=== PATIENT | male | born 1955 | race Caucasian/White ===

== ENCOUNTER → 2016-09-18 11:57 | Outpatient (CLI) | payer MEDICARE ==
[2014-06-21 13:07] VITALS: BMI 28.7
[~2016-09-18 11:57] MED LIST: ADVIL PM CAPLET1 TAB PO; ASPIRIN325 MG PO; ASPIRIN81 MG PO; COLACE100 MG PO; HEMOCYTE PLUS C1 CAP PO; HUMALOG PUMP; IMDUR30 MG PO; LASIX20 MG PO; LEXAPRO20 MG PO; LYRICA75 MG PO; MEVACOR40 MG PO; NEXIUM20 MG PO; PLAVIX75 MG PO; PRILOSEC20 MG PO; PRINIVIL10 MG PO; PRINIVIL20 MG PO; SENOKOT-S TABLE1 TAB PO; ZOVIRAX400 MG PO
== END | disposition home or self-care (01) ==
LOC: D.MRI 11:57
DX: G32.81 Cerebellar ataxia in diseases classified elsewhere (principal)

== ENCOUNTER → 2016-11-04 13:12 | Outpatient (CLI) | payer MEDICARE ==
[2014-06-21 13:07] VITALS: BMI 28.7
== END | disposition home or self-care (01) ==
LOC: D.US 13:12
DX: I25.10 Atherosclerotic heart disease of native coronary artery without angina pectoris (principal); M79.605 Pain in left leg; M79.604 Pain in right leg

== ENCOUNTER 2016-11-19 06:33 | Outpatient (CLI) | payer MEDICARE ==
[~2016-11-19] VITALS: Ht 177.8 cm; Wt 90.9 kg
--- NOTE | ~2016-11-19 | HEMODYNAMI ---
PATIENT:SARAH MARTINEZ MEDICAL RECORD: [id number] : 51 LOCATION:[facility] ADMISSION DATE: 11/19/16 Generatedon:11/19/20169:29 Patient name: SARAH MARTINEZ Patient #: [id number] SSN: DO B: 1955 Date of study: 11/19/2016 Page: Of Hemodynamic Procedure Report Patient Data Patient Demographics Procedure consent was obtained First Name: SARAH Gender: Male Last Name: JUAN : 1955 [facility] Initial: C Age: 61 year(s) Patient #: [id number] Race: Unknown Additional ID: [id number] Contact details Address: [address] [place] [address] State: [place] City: [facility] Zip code: [address] Past Medical History Allergies Allergen Reaction Date Comments Reported Morphine 11/19/2016 Admission Admission Data Admission Date: 11/19/2016 Admission Time: 6:33 Lab Results Lab Result Date: 11/19/2016 Lab Result Time: 0:00 Biochemistry Name Units Result Min Max BUN mg/dl 15 --(--*-)-- 7 18 Creatinine mg/dl 0.9 --(-*--)-- 0.6 1.3 CBC Name Units Result Min Max Hemoglobin g/dl 14 --(*---)-- 13.5 17.5 Procedure Procedure Types Cath Procedure Miscellaneous Procedures Moderate Sedation up to 45 minutes Peripheral Cath Diagnostic Procedure Cath Peripheral Pvcww-Yaguodc-Gfj-Off Peripheral vascular Intervention Atherectomy Stent Stent-Fem/Pop w/ather w/plasty Procedure Description Procedure Date Procedure Date: 11/19/2016 Procedure Start Time: 8:14 Procedure End Time: 9:28 Procedure Staff Name Function Nicho Aguirre MD Performing Physician Nikolas Pimentel RN Nurse Raudel Lopez RT Scrub Jose Burton RT Monitor Procedure Data Cath Procedure Fluoroscopy Diagnostic fluoroscopy Total fluoroscopy Time: time: 15.6 min 15.6 min Diagnostic fluoroscopy Total fluoroscopy dose: 406 dose: 406 mGy mGy Contrast Material Contrast Material Type Amount (ml) Isovue 300 191 Entry Location Entry Primary Successful Side Size Upsize Upsize Entry Closure Succes sful Closure Location (Fr) 1 (Fr) 2 (Fr) Remarks Device Remarks Femoral Right 5 Fr 6 Fr 6 Fr PINNACLE Exoseal artery Long Short 6FR SHORT USED TO OPEN THE SKIN Diagnostic catheters Device Type Used For End Catheter Placement Cordis Tempo 5Fr UF Abdominal catheter aortogram with runoff Diagnostic Infinity 5Fr Abdominal IM catheter aortogram with runoff Procedure Complications No complications Procedure Medications Medication Administration Route Dosage Oxygen NC 2 l/min Heparin Flush Bag added to field 2 bags (1000units/500ml NS) 0.9% NaCl I.V. 100 ml/hr Fentanyl I.V. 50 mcg Versed I.V. 1 mg Fentanyl I.V. 50 mcg Versed I.V. 1 mg Fentanyl I.V. 50 mcg Viperslide Mix(5mg added to field Verapamil/5mg Nitro/20cc Viperslide/100cc Bag NS) Heparin Bolus I.V. 8000 units Fentanyl I.V. 50 mcg Plavix P.O. 600 mg Hemodynamics Rest HGB: 14 (g/dl) Heart Rate: 70 (bpm) Snapshots Pre Cath Intra NCS Post Cath Vital Signs Time Heart Resp SPO2 etCO2 VO3dwna NIBP (mmHg) Rhythm Pain Sedation Rate (ipm) (%) (mmHg) (mmHg) Status Level (bpm) 7:57:33 70 18 98 0 0 174/96(148) NSR 0 (11) 10(A) , No pain 8:01:57 69 20 98 0 0 182/89(146) NSR 0 (11) 10(A) , No pain 8:06:23 68 18 97 0 0 167/84(146) NSR 0 (11) 10(A) , No pain 8:10:43 68 17 95 0 0 166/92(132) NSR 0 (11) 10(A) , No pain 8:15:05 65 19 99 0 0 167/84(132) NSR 0 (11) 9(A) , No pain 8:19:34 66 18 100 0 0 164/72(141) NSR 0 (11) 9(A) , No pain 8:23:56 67 18 100 0 0 173/88(132) NSR 0 (11) 9(A) , No pain 8:28:12 66 19 100 0 0 166/89(131) NSR 0 (11) 9(A) , No pain 8:32:32 66 17 100 0 0 178/89(142) NSR 0 (11) 9(A) , No pain 8:36:56 68 17 100 0 0 176/89(129) NSR 0 (11) 9(A) , No pain 8:41:18 68 16 100 0 0 148/81(140) NSR 0 (11) 9(A) , No pain 8:45:36 69 16 100 0 0 133/77(107) NSR 0 (11) 9(A) , No pain 8:49:48 70 16 100 0 0 143/76(107) NSR 0 (11) 9(A) , No pain 8:54:08 67 17 99 0 0 112/67(94) NSR 0 (11) 9(A) , No pain 8:58:12 68 17 99 0 0 130/78(110) NSR 0 (11) 9(A) , No pain 9:02:20 67 18 100 0 0 149/91(139) NSR 0 (11) 9(A) , No pain 9:06:34 67 17 100 0 0 149/88(138) NSR 0 (11) 9(A) , No pain 9:10:48 67 18 100 0 0 163/91(132) NSR 0 (11) 9(A) , No pain 9:15:08 67 18 100 0 0 167/92(148) NSR 0 (11) 9(A) , No pain 9:19:28 68 18 100 0 0 173/92(146) NSR 0 (11) 9(A) , No pain 9:23:52 67 19 100 0 0 164/93(147) NSR 0 (11) 9(A) , No pain 9:28:12 66 11 100 0 0 167/87(152) NSR 0 (11) 9(A) , No pain Medications Time Medication Route Dose Verified Delivered Reason Notes Effectiveness by by 8:00:15 Oxygen NC 2 Nikolas Connor Per physician l/min Margarito Pimentel RN RN 8:00:25 Heparin Flush added 2 Nikolas Connor used for Bag to bags Pimentel Pimentel bag shaker (1000units/500ml field RN NS) 8:00:34 0.9% NaCl I.V. 100 Nikolas Nikolas Per physician ml/hr Margarito Pimentel RN RN 8:10:57 Fentanyl I.V. 50 Nikolas Nikolas for sedation mcg Margarito Pimentel RN RN 8:11:15 Versed I.V. 1 mg Nikolas Nikolas for sedation Margarito Pimentel RN RN 8:17:13 Fentanyl I.V. 50 Nikolas Nikolas for sedation mcg Margarito Pimentel RN RN 8:17:18 Versed I.V. 1 mg Nikolas Nikolas for sedation Margarito Pimentel RN RN 8:37:29 Fentanyl I.V. 50 Nikolas Nikolas for sedation mcg Margarito Pimentel RN RN 8:37:39 Viperslide added Nikolas Nikolas used for Mix(5mg to Margarito Pimentel RN procedure Verapamil/5mg RN Nitro/20cc Viperslide/100cc Bag NS) 8:38:34 Heparin Bolus I.V. 8000 Nikolas Nikolas for units Margarito Pimentel RN anticoagulation RN 8:48:48 Fentanyl I.V. 50 Nikolas Nikolas for sedation mcg Margarito Pimentel RN RN 9:26:12 Plavix P.O. 600 Nikolas Nikolas for mg Margarito Pimentel RN antiplatelet RN therapy Procedure Log Time Note 7:39:18 Nikolas Pimentel RN sent for patient. Start room use. 7:39:19 Time tracking: Regular hours 7:39:24 Plan of Care:Hemodynamics will remain stable., Cardiac rhythm will remain stable., Comfort level will be maintained., Respiratory function will remain adequate., Patient/ family verbilizes understanding of procedure., Procedure tolerated without complication., Recovers from procedure without complications.. 7:51:04 Patient received from Pre/Post Procedure Room to CCL 1 Alert and oriented. Tansferred to table in Supine position. 7:51:06 Warm blankets applied, and veronica hugger turned on for patient comfort. 7:51:06 Correct patient and procedure confirmed by team. 7:51:07 Signed procedure consent form obtained from patient. 7:51:08 ECG and BP/O2 sat monitors applied to patient. 7:56:28 Vital chart was started 8:00:15 Oxygen 2 l/min NC was administered by Nikolas Pimentel RN; Per physician; 8:00:25 Heparin Flush Bag (1000units/500ml NS) 2 bags added to field was administered by Nikolas Pimentel RN; used for procedure; 8:00:34 0.9% NaCl 100 ml/hr I.V. was administered by Nikolas Pimentel RN; Per physician; 8:02:30 Baseline sample Acquired. 8:02:44 Rhythm: sinus rhythm 8:02:47 Full Disclosure recording started 8:03:10 H&P Date Dictated: 10/30/2016 Within 30 days and on chart., H&P Addendum completed by physician on day of procedure. (MUST COMPLETE FOR ALL OUTPATIENTS). 8:03:12 Pre-procedure instructions explained to patient. 8:03:13 Pre-op teaching completed and patient verbalized understanding. 8:03:19 Family in waiting room. 8:03:22 Patient NPO since Midnight. 8:03:30 Patient allergic to Morphine 8:03:34 Is the patient allergic to Iodine/contrast media? No. 8:03:50 Is patient on blood thinner?No 8:03:54 Patient diabetic? Yes. 8:03:57 If diabetic: On Metformin? No 8:04:09 INSULIN DEPENDANT 8:04:16 ----Pre-sedation anethsthesia assessment.---- 8:04:19 Previous problem with sedation/anesthesia? No ? 8:04:21 Snore? Yes 8:04:33 Sleep apnea? No 8:04:36 Deviated septum? No 8:04:37 Opens mouth fully? Yes 8:04:39 Sticks out tongue? Yes 8:04:43 Airway obstruction? No ? 8:04:46 Dentures? No ? 8:06:01 Pre procedure: right dorsailis pedis pulse 1+ Palpable, but thready & weak; easily obliterated 8:06:06 Pre procedure: left dorsailis pedis pulse 1+ Palpable, but thready & weak; easily obliterated 8:06:10 Patient pain scale 0/10 ?. 8:06:21 IV patent on arrival in left forearm with 0.9% NaCl at [facility]. 8:07:37 Lab Result : BUN 15 mg/dl 8:07:37 Lab Result : Creatinine 0.9 mg/dl 8:07:37 Lab Result : Hemoglobin 14 g/dl 8:07:40 Lab results completed and on chart. 8:07:45 Right groin area was prepped with chlora-prep and draped in sterile fashion 8:07:49 Left groin area was prepped with chlora-prep and draped in sterile fashion 8:07:50 Alarms reviewed by R. N. 8:07:50 Sharps counted by scrub and verified by R.N. 8:07:51 --------ALL STOP TIME OUT------ 8:07:52 Final Timeout: patient, procedure, and site verified with staff and physician. All members of the team are in agreement. 8:07:58 Bilateral groins site verified by team. 8:08:01 Physical assessment completed. ASA score P 2 - A patient with mild systemic disease as per Nicho Aguirre MD. 8:08:08 Sedation plan: IV Moderate Sedation Versed, Fentanyl 8:08:20 Use device set Femoral Dx 8:08:22 Acist Syringe opened to sterile field. 8:08:23 Bag Decanter opened to sterile field. 8:08:23 Medline Cath Pack opened to sterile field. 8:08:23 Terumo 5Fr [place] Sheath opened to sterile field. 8:08:24 St Art 260cm J .035 wire opened to sterile field. 8:08:25 Acist Hand Control opened to sterile field. 8:08:26 Acist Manifold opened to sterile field. 8:08:27 Tegaderm 4 x 4 opened to sterile field. 8:10:57 Fentanyl 50 mcg I.V. was administered by Nikolas Pimentel RN; for sedation; 8:11:15 Versed 1 mg I.V. was administered by Nikolas Pimentel RN; for sedation; 8:13:48 Zero performed for pressure channel P1 8:13:59 Procedure started. 8:14:07 Local anesthetic to right femoral artery with Lidocaine 2% by Nicho Aguirre MD.INITIAL ACCESS ONLY 8:14:42 A 5 Fr sheath was inserted into the Right Femoral arteryPINNACLE 6FR SHORT USED TO OPEN THE SKIN 8:16:08 A Cordis Tempo 5Fr UF catheter was advanced over the wire and used for Abdominal aortogram with runoff. 8:16:26 Abdominal angiogram w/ runoff was performed. 8:17:13 Fentanyl 50 mcg I.V. was administered by Nikolas Pimentel RN; for sedation; 8:17:18 Versed 1 mg I.V. was administered by Nikolas Pimentel RN; for sedation; 8:20:19 Left leg runoff performed. 8:20:20 Right leg runoff performed. 8:20:39 Catheter removed. 8:21:15 A Diagnostic Infinity 5Fr IM catheter was advanced over the wire and used for Abdominal aortogram with runoff. 8::50 SELECTING LFA 8::57 Left leg runoff performed. 8:24:51 Catheter removed. 8:24:57 Merit BasixCompak Inflation Kit opened to sterile field. 8:25:17 Terumo 6Fr [place] Destination Sheath opened to sterile field. 8:25:25 Sheath upsized to a 6 Fr Long. 8:26:38 Terumo 6Fr [place] Sheath opened to sterile field. 8:28:43 Procedure type changed to Cath procedure, Miscellaneous Procedures, Moderate Sedation up to 45 minutes, Peripheral Cath Diagnostic Procedure, Cath Peripheral, Tceps-Etdtypy-Dej-Off, Peripheral vascular Intervention, Atherectomy, Stent, Stent-Fem/Pop w/ather w/plasty 8:36:26 Viperslide LUBRICANT opened to sterile field. 8:36:26 VIPER .014 335 CM guide wire opened to sterile field. 8:37:07 Predator 2.0 SFA catheter opened to sterile field. 8:37:29 Fentanyl 50 mcg I.V. was administered by Nikolas Pimentel RN; for sedation; 8:37:39 Viperslide Mix(5mg Verapamil/5mg Nitro/20cc Viperslide/100cc Bag NS) added to field was administered by Nikolas Pimentel RN; used for procedure; 8:37:51 VIPER wire advanced. 8:38:34 Heparin Bolus 8000 units I.V. was administered by Nikolas Pimentel RN; for anticoagulation; 8:44:44 A Diamondback Coronary atherectomy catheter was prepped and advanced across the Mid Superficial Femoral, Left lesion. Pass Number: 1 8:46:00 A Diamondback Coronary atherectomy catheter was prepped and advanced across the Mid Superficial Femoral, Left lesion. Pass Number: 2 8:47:14 A Diamondback Coronary atherectomy catheter was prepped and advanced across the Mid Superficial Femoral, Left lesion. Pass Number: 3 8:48:28 A Diamondback Coronary atherectomy catheter was prepped and advanced across the Mid Superficial Femoral, Left lesion. Pass Number: 4 8:48:48 Fentanyl 50 mcg I.V. was administered by Nikolas Pimentel RN; for sedation; 8:51:18 A Diamondback Coronary atherectomy catheter was prepped and advanced across the Distal Superficial Femoral, Left lesion. Pass Number: 1 8:51:59 A Diamondback Coronary atherectomy catheter was prepped and advanced across the Distal Superficial Femoral, Left lesion. Pass Number: 2 8:52:27 A Diamondback Coronary atherectomy catheter was prepped and advanced across the Distal Superficial Femoral, Left lesion. Pass Number: 3 8:53:23 A Diamondback Coronary atherectomy catheter was prepped and advanced across the Distal Superficial Femoral, Left lesion. Pass Number: 4 8:55:13 A Diamondback Coronary atherectomy catheter was prepped and advanced across the Distal Superficial Femoral, Left lesion. Pass Number: 5 8:55:47 Guide catheter removed. 9:03:01 Inflation number: 1 A Saber 6.0 x 6 x 150 balloon was prepped and advanced across the Distal Superficial Femoral, Left, then inflated to 3 DAVID for 1:45 (min:sec). 9:04:46 Inflation number: 2 The Saber 6.0 x 6 x 150 balloon was reinflated across the Distal Superficial Femoral, Left, to 3 DAVID for 1:30 (min:sec). 9:07:03 Inflation number: 1 The Saber 6.0 x 6 x 150 balloon was reinflated across the Mid Superficial Femoral, Left, to 5 DAVID for 1:09 (min:sec). 9:08:35 Inflation number: 2 The Saber 6.0 x 6 x 150 balloon was reinflated across the Mid Superficial Femoral, Left, to 6 DAVID for 1:08 (min:sec). 9:08:55 Balloon removed over the wire. 9:16:39 Cordis SMART 6 X 20 X 120 stent was deployed across Distal Superficial Femoral, Left . 9:18:51 Stent catheter was removed intact over wire. 9:18:52 Wire removed. 9:19:01 Sheath upsized to a 6 Fr Short. 9:19:01 Sheath removed intact; hemostasis achieved with Exoseal to the Right Femoral artery. 9:19:06 Procedure ended.(Physican Out) 9:19:10 Contrast amount:Isovue 300 191ml. 9:19:17 Fluoroscopy time 15.60 minutes. 9:19:21 Fluoroscopy dose: 406 mGy 9:19: Flurop Dose total: 406 9:19:52 Sharps counted by scrub and verified by R.N. 9:19:53 Insertion/operative site no bleeding no hematoma. 9:19:56 Post-op/insertion site Right Femoral artery dressed using a 4 x 4 and Tegaderm. 9:19:59 Post right femoral artery:stable 9:20:00 Post Procedure Pulses reassessed and unchanged 9:20:03 Post procedure: right dorsailis pedis pulse 1+ Palpable, but thready & weak; easily obliterated. 9:20:08 Post procedure rhythm: sinus rhythm 9:20:09 Post procedure instruction explained to patient.Patient verbalizes understanding. 9:22:07 Procedure and supply charges have been captured, reviewed, submitted and are correct. 9:24:21 Cordis 6Fr Exoseal opened to sterile field. 9:26:12 Plavix 600 mg P.O. was administered by Nikolas Pimentel RN; for antiplatelet therapy; 9:26:18 Procedure Complication : No complications 9:28:22 Vital chart was stopped 9:28:22 See physician's report for complete and final results. 9:28:24 Report given to Pre/Post Procedure Room. 9:28:28 Patient transfered to Pre/Post Procedure Room with Stretcher. 9:28:30 Procedure ended. 9:28:30 Full Disclosure recording stopped 9:28:34 End room use (Document Last) Intervention Summary Intervention Notes Time ActionType Lesion and Equipment Action# Pressure Duration Attributes Used 8:44:44 Atherectomy Mid Diamondback 00:23 Superficial Coronary Femoral, atherectomy Left catheter 8:46:00 Atherectomy Mid Diamondback 00:24 Superficial Coronary Femoral, atherectomy Left catheter 8:47:14 Atherectomy Mid Diamondback 00:29 Superficial Coronary Femoral, atherectomy Left catheter 8:48:28 Atherectomy Mid Diamondback 00:27 Superficial Coronary Femoral, atherectomy Left catheter 8:51:18 Atherectomy Distal Diamondback 00:15 Superficial Coronary Femoral, atherectomy Left catheter 8:51:59 Atherectomy Distal Diamondback 00:27 Superficial Coronary Femoral, atherectomy Left catheter 8:52:27 Atherectomy Distal Diamondback 00:27 Superficial Coronary Femoral, atherectomy Left catheter 8:53:23 Atherectomy Distal Diamondback 00:21 Superficial Coronary Femoral, atherectomy Left catheter 8:55:13 Atherectomy Distal Diamondback 00:26 Superficial Coronary Femoral, atherectomy Left catheter 9:03:01 Inflate Distal Saber 6.0 x 1 3 01:45 balloon Superficial 6 x 150 Femoral, balloon Left 9:04:46 Reinflate Distal Saber 6.0 x 2 3 01:30 balloon Superficial 6 x 150 Femoral, balloon Left 9:07:03 Reinflate Mid Saber 6.0 x 1 5 01:09 balloon Superficial 6 x 150 Femoral, balloon Left 9:08:35 Reinflate Mid Saber 6.0 x 2 6 01:08 balloon Superficial 6 x 150 Femoral, balloon Left 9:16:39 Deploy self Distal Cordis 1 expanding Superficial SMART 6 X stent Femoral, 20 X 120 Left stent Device Usage Item Name Manufacture Quantity Catalog Number Hospital Part Current Min imal Lot# / Charge Number Stock Stock Serial# Code Acist Acist Medical 1 [id number] 213130 085668 113847 20 Syringe Systems Inc Bag Microtek 1 [id number] [id number] 92475 074842 5 DecKeraplast Technologies Medical Inc. Medline Cardinal 1 [id number] 331164 15374 062633 5 Cath Pack Health Terumo 5Fr Terumo 1 [id number] 265820 241184 870580 [address] Art 1 660409 463658 223818 156782 30 260cm J .035 wire [facility] Acist Medical 1 92112 152115 263172 734615 5 Control Systems Inc Acist Acist Medical 1 27193 419277 912139 155577 5 Manifold Systems Inc Tegaderm 4 3M 1 [id number] [id number] 714361 980464 5 x 4 Cordis Cardinal 1 [id number] 648286 752320 054429 10 Tempo 5Fr Health UF catheter Diagnostic Cardinal 1 [id number] 729618 128830 629577 5 K121 5Fr IM catheter [facility] 1 [id number] 568057 722048 891599 15 BasixCompak Inflation Kit Terumo 6Fr Terumo 1 [id number] 765174 67437 906730 5 [place] Destination Sheath Terumo 6Fr Terumo 1 [id number] 710126 652075 233153 40 [place] Sheath Viperslide Cardiovascular 1 VPR-[id number] 053290 545815 5 LUBRICANT systems VIPER .014 Cardiovascular 1 [id number] 485525 219051 5 335 CM systems guide wire Predator Cardiovascular 1 [id number] 413280 191896 5 2.0 SFA systems catheter Diamondback Cardiovascular 1 [id number]-[id number] 548231 990755 887478 5 Coronary systems atherectomy catheter Saber 6.0 x Cardinal 1 [id number] 632106 756280 775970 5 6 x 150 Health balloon Cordis Cardinal 1 [id number] 409483 090610 0 SMART 6 X Health 20 X 120 stent Cordis 6Fr Cardinal 1 [id number] 536651 482463 066424 10 [employer] - is now ClipCard Signature Audit [place] Stage Time Signature Unsigned Intra-Procedure 11/19/2016 Jose Burton 9:29:16 AM RT(R) Signatures Monitor : Jose Burton RT Signature : Date : Time : [place] [id number] [place] [address]
--- NOTE | ~2016-11-19 | OP ---
PATIENT NAME: SARAH MARTINEZ MEDICAL RECORD: [id number] :51 LOCATION:D.CAT ADMISSION DATE: SURGEON: MARIANO NGUYEN M.D. DATE OF OPERATION: 11/19/2016 REFERRING PHYSICIAN: Mariano Parry MD. PROCEDURES PERFORMED: 1. Aortofemoral runoff. 2. Atherectomy of the left superficial artery. 3. OCEANOGRAPHER ASSISTANT, left superficial artery. 4. Stenting to the left superficial artery. INDICATION: A 61-year-old gentleman who presents with lifestyle-limiting claudication. TECHNIQUE: A 5-Mauritanian sheath was inserted in retrograde fashion in the right common femoral artery. Next, the UF catheter was advanced to the level of T12. Power injection was performed to visualize the distal aorta. Next, catheter was pulled down to the level of bifurcation. Right and left lower extremity angiograms were then performed. FINDINGS: The distal aorta is of good caliber. Each kidney receives a single arterial supply. There is no evidence of renal artery stenosis. The distal aorta is of good caliber and has no obstruction. Right common iliac artery is large in caliber and widely patent. Right common femoral artery is large in caliber and widely patent. Right superficial artery has some exophytic plaque in the proximal segment. It appears to be about 40%-50% stenosis. The mid vessel is moderately calcified, but widely patent. Popliteal artery is large in caliber and widely patent. Below the knee, there appears to be 2-vessel runoff. Left common iliac artery is large in caliber and widely patent. Left common femoral artery is large in caliber and widely patent. Left superficial artery is heavily calcified just beyond the origin of the vessel. There appears to be 2 sequential 80% stenoses seen. At the junction of the [id number]-[id number] vessel, there appears to be another area of 70%-80% stenosis as well. DESCRIPTION OF INTERVENTION: At this point, the UF catheter was pulled down to the level of bifurcation. The guidewire was advanced around the bifurcation and placed in the left superficial femoral artery. At this point, a 6-Mauritanian Brite Tip sheath was advanced around the bifurcation and placed just above the bifurcation point of the SFA and profunda. A 8000 units of heparin was infused. At this point, a Viper wire was advanced and placed in the popliteal segment. A solid 2.0 crown atherectomy device was advanced and runs were made at low, medium and high speeds in both the proximal and distal superficial artery. Injections then revealed a 30% residual stenosis of the proximal segment. There appeared to be about the same in the distal segment. At this point, a 6 mm x 60 mm Saber balloon was advanced and 2 long inflations were performed in the distal vessel at 4 atmospheres. The balloon was then pulled at the proximal vessel and long inflation was performed at 4 atmospheres as well. Injections revealed proximal vessel to be patent with about 10%-20% residual stenosis. There is no evidence of any dissection. However, in the mid vessel, there appeared to be a flow-limiting dissection where the vessel had been treated with the atherectomy OPERATIVE REPORT [id number] SARAH MARTINEZ device. At this point, a 6 mm x 20 mm Smart stent was deployed across the dissection plane. Injections revealed the dissection resolved following stenting. There is brisk flow at the distal vessel. At this point, the Viper wire was removed. IMPRESSION: Successful atherectomy and OCEANOGRAPHER ASSISTANT to the left superficial femoral artery. TRANSINT:[id number] Voice Confirmation ID: [id number] DOCUMENT ID: [id number] MARIANO NGUYEN M.D. CC: [id number] DICTATION DATE: 11/19/1635 STRATEGY MANAGER: 11/19/16 [address] [facility] [address] [place] [address]
[2016-11-19 07:02] VITALS: BP 160/79; Ht 177.8 cm; Wt 90.9 kg
[2016-11-19 07:16] LABS: BASOPHILS 0.2 % (0-2); EOSINOPHILS 5.1 % (0-7); HEMATOCRIT 40.8 % (42.0-54.0); LYMPHOCYTES 27.1 % (15-50); MCH 29.7 pg (26.0-34.0); MCHC 34.3 g/dL (31.0-37.0); MCV 86.6 fL (80.0-100.0); MEAN PLATELET VOLUME 9.7 fL (7.4-10.4); MONOCYTES 14.2 % (2-11); NEUTROPHILS 53.4 % (40-80); PLATELET COUNT 221 10x3/uL (130-400); RBC 4.71 10x6/uL (4.20-6.10); RDW 12.9 % (11.5-14.5); WBC 4.3 10x3/uL (4.8-10.8)
[2016-11-19 07:24] LABS: CALC OSMOLALITY 286 mosm/kg (275-300); CALCIUM 8.6 mg/dL (8.5-10.1); CARBON DIOXIDE 31.6 mmol/L (21.0-32.0); CHLORIDE - SERUM 107 mmol/L (98-107); CREATININE - SERUM 0.9 mg/dL (0.6-1.3); POTASSIUM - SERUM 3.9 mmol/L (3.5-5.1); SODIUM 143 mmol/L (136-145); UREA NITROGEN 15 mg/dL (7-18); eGFR NON AFRICAN AMERICAN > 90 mL/min (90-120)
[2016-11-19 07:29] LABS: GLUCOSE 117 mg/dL (74-106)
--- NOTE | 2016-11-19 09:55 | NUR ---
0955 PT DENIES ANY C/O. JOSE SANDWICH AND PO FLUIDS WITH NO NAUSEA. DRESSING RIGHT GROIN IS CDI, AREA IS SOFT WITH NO BLEEDING OR HEMATOMA NOTED. PEDAL PULSES PALPABLE. AT BEDSIDE. VSS.
--- NOTE | 2016-11-19 09:56 | NUR ---
0965 RECEIVED PT FROM COMMUNITY SERVICE REPRESENTATIVE, SEE ADMIT ASSESSMENT. PT IS DROWSY, DENIES ANY C/O PAIN OR NAUSEA. DRESSING TO RIGHT GROIN IS CDI, NO BLEEDING OR HEMATOMA NOTED. PEDAL PULSES PALPABLE, FEET PINK AND WARM TO TOUCH. AREA IS SOFT. REQUESTED PO FLUIDS, PO FLUIDS AND SANDWICH TRAY SERVED. AT BEDSIDE, CALL LIGHT IN REACH.
[2016-11-19] MEDS ORDERED: PLAVIX75 MG PO (10:11)
--- NOTE | 2016-11-19 10:35 | NUR ---
1035 DRESSING RIGHT GROIN IS CDI, NO BLEEDING OR HEMATOMA NOTED. PEDAL PULSES PALPABLE. DENIES ANY C/O.
--- NOTE | 2016-11-19 11:00 | NUR ---
1100 PT DENIES ANY C/O. DRESSING REMAINS CDI, NO BLEEDING OR HEMATOMA NOTED. PEDAL PULSES PALPABE. RR EVEN AND UNLABORED, VSS. AT BEDSIDE.
--- NOTE | 2016-11-19 11:32 | NUR ---
1130 PT RESTING WITH EYES CLOSED, DRESSING TO RIGHT GROIN IS CDI, NO BLEEDING OR HEMATOMA NOTED. VSS. AT BEDSIDE. WILL CONTINUE TO MONITOR.
--- NOTE | 2016-11-19 12:12 | NUR ---
1200 DRESSING TO RIGHT GROIN IS CDI, NO BLEEDING OR HEMATOMA NOTED. PEDAL PULSES PALPABLE. CAP REFILL IS BRISK. VSS, AT BEDSIDE.
--- NOTE | 2016-11-19 13:00 | NUR ---
1300 PT DENIES ANY C/O. DRESSING TO RIGHT GROIN IS CDI, NO BLEEDING OR HEMATOMA NOTED. PEDAL PULSES PALPABLE. AT BEDSIDE. PT DENIES NEEDS AT THIS TIME.
--- NOTE | 2016-11-19 14:38 | NUR ---
1345 PT SITTING UP IN BED, GROIN SITE FREE FROM BLEEDING OR HEMATOMA. PEDAL PULSES PALPABLE. PT DENIES ANY C/O AT THIS TIME. IV DC'D WITH CATH INTACT. 1400 PT HAS AMBULATED TO THE BATHROOM AND VOIDED QS. DRESSING TO RIGHT GROIN IS CDI, NO BLEEDING OR HEMATOMA NOTED. REVIEWED DC INSTRUCTIONS WITH PT WHO VERBALIZES UNDERSTANDING. PT ESCORTED TO PRIVATE AUTO VIA WC BY STAFF WITH DRIVING HIM HOME.
== END 2016-11-19 14:00 | disposition home or self-care (01) ==
LOC: D.CATH 06:33
PROVIDERS: Internal Medicine Cardiovascular Disease
DX: I70.212 Atherosclerosis of native arteries of extremities with intermittent claudication, left leg (principal)

== ENCOUNTER 2017-02-26 14:03 | Inpatient (IN) | payer MEDICARE ==
[~2017-02-26] VITALS: Ht 177.8 cm; Wt 91.6 kg
--- NOTE | 2017-02-26 14:44 | NUR ---
RECEIVED TO ROOM 2216 FROM MD OFFICE. ORIENTED TO ROOM AND CALL LIGHT SYSTEM. CARE PLAN REVIEWED. SCDs APPLIED TO BLE. URINAL GIVEN TO PATIENT FOR URINE SAMPLE AND MEASUREMENT OF OUTPUT. IV SITED TO LEFT FOREARM WITH 20 GA X1 STICK. NS INITIATED PER MD ORDER. PASSWORD AND EMERGENCY CONTACT INFO PUT IN COMPUTER. CALL LIGHT IN REACH. WILL CONTINUE WITH PLAN OF CARE.
--- NOTE | 2017-02-26 16:50 | NUR ---
FSBS 327. USES HIS OWN INSULIN PUMP.
[2017-02-26 17:27] VITALS: BP 136/53
[2017-02-26 17:40] VITALS: BP 136/53; BMI 29.0
--- NOTE | 2017-02-26 17:44 | NUR ---
TYLENOL PO PER TEMP OF 100.1
--- NOTE | 2017-02-26 18:06 | NUR ---
NO CHANGES IN INITIAL ASSESSMENT. CALL LIGHT IN REACH. SCDs TO BLE. CONTACT ISOLATION. WILL CONTINUE WITH PLAN OF CARE.
--- NOTE | 2017-02-26 18:56 | NUR ---
VOMITING. IV OUT WITH TIP INTACT. RESITED TO LEFT AC WITH 22 GA X1 STICK. NEW ORDER FOR ZOFRAN. AT BEDSIDE. CALL LIGHT IN REACH.
--- NOTE | 2017-02-26 19:13 | NUR ---
ZOFRAN 4 MG SIVP. CALL LIGHT IN REACH.
--- NOTE | 2017-02-26 19:58 | NUR ---
PATIENT IS AWAKE, ALERT AND ORIENTED X'S 4. RESPIRATIONS ARE EVEN AND UNLABORED ON ROOM AIR. NO SIGNS OF DISTRESS NOTED. BED IN LOWEST POSITION. BED RAILS UP X'S 2.
[2017-02-26 20:00] VITALS: BP 122/60
--- NOTE | 2017-02-26 21:15 | NUR ---
PATIENT HAS AN INSULIN PUMP. HE SAID HE HAS HUMALOG IN THE PUMP. HE KEYED IN THE FSBS OF 280. HE GAVE HIMSELF 5.5 UNITS OF INSULIN THROUGH HIS PUMP.
[2017-02-27] VITALS: BP 153/81
[2017-02-27 04:00] VITALS: BP 138/64
[2017-02-27 05:26] LABS: ALBUMIN 2.7 g/dL (3.4-5.0); ALKALINE PHOSPHATASE 256 U/L (46-116); ALT (SGPT) 102 U/L (10-68); BILIRUBIN - DIRECT 0.16 mg/dL (0.00-0.30); BILIRUBIN - INDIRECT 0.34 mg/dL (0.00-1.00); CALC OSMOLALITY 278 mosm/kg (275-300); CALCIUM 8.2 mg/dL (8.5-10.1); CARBON DIOXIDE 28.2 mmol/L (21.0-32.0); CHLORIDE - SERUM 99 mmol/L (98-107); CREATININE - SERUM 0.8 mg/dL (0.6-1.3); POTASSIUM - SERUM 4.4 mmol/L (3.5-5.1); PROTEIN - SERUM 5.6 g/dL (6.4-8.2); SODIUM 135 mmol/L (136-145); UREA NITROGEN 11 mg/dL (7-18); eGFR NON AFRICAN AMERICAN > 90 mL/min (90-120)
[2017-02-27 05:28] LABS: BASOPHILS 2.1 % (0-2); EOSINOPHILS 0 % (0-7); HEMATOCRIT 38.1 % (42.0-54.0); IMMATURE GRANULOCYTES 0.5 % (0-5); LYMPHOCYTES 35.1 % (15-50); MCH 29.1 pg (26.0-34.0); MCHC 34.1 g/dL (31.0-37.0); MCV 85.4 fL (80.0-100.0); MEAN PLATELET VOLUME 10.8 fL (7.4-10.4); MONOCYTES 18.8 % (2-11); NEUTROPHILS 43.5 % (40-80); RBC 4.46 10x6/uL (4.20-6.10); RDW 12.5 % (11.5-14.5)
[2017-02-27 05:29] LABS: PLATELET COUNT 133 10x3/uL (130-400)
[2017-02-27 05:32] LABS: GLUCOSE 284 mg/dL (74-106)
[2017-02-27 05:34] LABS: WBC 1.9 10x3/uL (4.8-10.8)
[2017-02-27 07:25] VITALS: BP 163/70
--- NOTE | 2017-02-27 07:43 | NUR ---
AWAKE AND ALERT WITH RESPIRATIONS EVEN AND NON LABORED. REMAINS IN NEUTROPENIC ISOLATION. DENIES NEEDS AT THIS TIME. CALL LIGHT IN REACH, WILL CONTINUE WITH PLAN OF CARE.
[2017-02-27 10:18] VITALS: Ht 177.8 cm; Wt 91.6 kg
[2017-02-27 11:10] VITALS: BP 132/67
[2017-02-27 15:01] VITALS: BP 127/64
--- NOTE | 2017-02-27 18:38 | NUR ---
NO CHANGES SINCE INITIATL ASSESSMENT. AT BEDSIDE. CALL LIGHT IN REACH. WILL CONTINUE WITH PLAN OF CARE.
[2017-02-27 20:00] VITALS: BP 149/72
[2017-02-28] VITALS: BP 157/77
--- NOTE | 2017-02-28 03:48 | NUR ---
FLUSHED IV WITH SALINE AND ASPIRATED BLOOD RETURN BEFORE STARTING THE ANTIBIOTIC.
[2017-02-28 04:00] VITALS: BP 148/70
[2017-02-28 05:24] LABS: BASOPHILS 2.4 % (0-2); HEMATOCRIT 36.9 % (42.0-54.0); HEMOGLOBIN 12.6 g/dL (13.5-17.5); IMMATURE GRANULOCYTES 0.2 % (0-5); LYMPHOCYTES 42.2 % (15-50); MCH 29.6 pg (26.0-34.0); MCHC 34.1 g/dL (31.0-37.0); MCV 86.6 fL (80.0-100.0); MEAN PLATELET VOLUME 10.3 fL (7.4-10.4); MONOCYTES 20.8 % (2-11); NEUTROPHILS 33.4 % (40-80); PLATELET COUNT 145 10x3/uL (130-400); RBC 4.26 10x6/uL (4.20-6.10); RDW 12.7 % (11.5-14.5)
[2017-02-28 05:28] LABS: WBC 4.2 10x3/uL (4.8-10.8)
--- NOTE | 2017-02-28 08:05 | NUR ---
PT AOX4 RESP EVEN AND NONLABORED PT DENIES NEEDS AT THIS TIME TO LEFT AC PATENT AND INTACT AT THIS TIME SRX2 BED AT LOWEST SETTING CALL LIGHT WITHIN REACH WILL CONTINUE TO MONITOR
[2017-02-28 09:40] VITALS: BP 149/64
[2017-02-28 12:46] VITALS: BP 142/66
--- NOTE | 2017-02-28 15:40 | NUR ---
PATIENT RESTING IN HIS BED. AT THE PATIENT'S BEDSIDE. SCHEDULED DOXYCYCLINE IVPB STARTED. PATIENT DENIES ANY NEEDS AT PRESENT TIME. CALL LIGHT IN PATIENT'S REACH. NEUTROPENIC PRECAUTIONS IN PLACE. WILL MONITOR PATIENT.
[2017-02-28 16:26] VITALS: BP 136/68
[2017-02-28 20:00] VITALS: BP 127/58
--- NOTE | 2017-02-28 23:07 | NUR ---
PT CALL LIGHT WAS ON, IV POLE STATED OCCLUDED PT SIDE. PT IV IS IN LT AC. IV SITE IS CLEAN, DRY AND INTACT. REMINDED PT TO TRY AND KEEP ARM STRAIGHT, NO OTHER NEEDS AT THIS TIME. WILL CONTINUE WITH CARE PLAN
[2017-03-01] VITALS: BP 162/71
[2017-03-01 04:00] VITALS: BP 163/47
--- NOTE | 2017-03-01 04:32 | NUR ---
PT RESTING QUIETLY, EYES CLOSED. RESP EVEN, UNLABORED. NO DISTRESS NOTED. CONTINUE STRATEGIC PLANNING ANALYST'S PLAN OF CARE. NEUTRAPENIC PRECAUTIONS OBSERVED.
--- NOTE | 2017-03-01 06:49 | NUR ---
PT GLUCOSE WAS AT 319, TREATED WITH 20UNITS OF INSULIN
--- NOTE | 2017-03-01 07:20 | NUR ---
PATIENT RECEIVED ALERT IN LOW BEASLEY POSITION. NO SIGNS OF DISTRESS NOTED. DENIES NEEDS. SIDE RAILS UP X2. BED IN LOW POSITION. CALL LIGHT IN REACH.
--- NOTE | 2017-03-01 07:36 | HP ---
PATIENT: SARAH MARTINEZ MEDICAL RECORD: [id number] ACCOUNT: [id number] LOCATION:D.MS [facility] : 53 ADMISSION DATE: 02/26/17 HISTORY AND PHYSICAL EXAMINATION REASON FOR ADMISSION: Fever, confusion. HISTORY OF PRESENT ILLNESS: The patient is a 61-year-old male with history of coronary artery disease, essential hypertension, type 1 diabetes mellitus who noted for the last 4 days of fever as high as 102, some mild confusion according to his . He has had a dull headache, but not severe. Denies nuchal rigidity. He denies cough, congestion, abdominal pain, diarrhea or dysuria. He has not had a rash. 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 He was seen in the office today with these symptoms and he was normotensive. His labs showed a white count of 1400 with 20 leukocytes, 61% neutrophils, H&H is 12.8 and 37.0 respectively. Urinalysis showed glucosuria. Blood sugar was 313. Sodium was normal, however hepatic transaminases were mildly elevated with an alkaline phosphatase of 278, SGPT of 125, SGOT of 105. A1c was 10.10. He was admitted to the hospital for these reasons and concerned for possible Tigard spotted fever and/or sepsis. PAST MEDICAL HISTORY: Two-vessel CABG for CAD in 2013, type 1 diabetes mellitus since 1971, on insulin pump. 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 He has had several skin cancer removed from his face, history of urinary retention postoperative, history of remote seizure now off any anti-seizure medications and hyperlipidemia. History of peripheral vascular disease with left PTCA of the left superficial femoral artery. PAST SURGICAL HISTORY: Bilateral carpal tunnel release, left shoulder reconstruction for dislocation, right femoral fracture post-ORIF, cataract surgery both eyes and surgery for AV malformation in 2000. FAMILY HISTORY: Father due to multiple myeloma. Mother of old age. ALLERGIES: MORPHINE MAKES HIM "CRAZY". HOME MEDICATIONS: He is on an insulin pump, Plavix 75 mg daily, lovastatin 40 mg at h.s., Lyrica 75 mg b.i.d., Lexapro 20 mg a day, lisinopril 20 mg daily. SOCIAL HISTORY: He is a former smoker. Does not drink alcohol. He is . He is disabled. REVIEW OF SYSTEMS: GENERAL: He felt fatigued for the last 4 days with fever as high as 102 with poor appetite. He has had a dull headache. HEENT: No recent visual change, sinus congestion, or sore throat. RESPIRATORY: No SOB or cough. CARDIAC: No exertional chest pain, claudication or edema. GASTROINTESTINAL: No nausea, vomiting, change in stools or blood per rectum. GENITOURINARY: No dysuria, nocturia once nightly. ENDOCRINE: Denies polyuria, polydipsia, heat or cold intolerance. NEUROLOGIC: Denies seizures. Confused and has had a dull headache. Denies neck pain. He has chronic peripheral neuropathy. HISTORY AND PHYSICAL [id number] SARAH MARTINEZ INTEGUMENT: No rash or itching. Does admit to recent multiple tick bites. PSYCHIATRIC: Denies depressed mood. PHYSICAL EXAMINATION: VITAL SIGNS: Height is 5 feet 10-1/2 inches, weight 208 pounds, BMI is 28.8, blood pressure 122/68, temperature 100 degrees Fahrenheit. GENERAL: The patient is alert and oriented. His eyes are clear, discs are sharp. NECK: Supple. Carotids, no bruits. Oropharynx unremarkable. CHEST: Clear without wheeze or rales. HEART: Regular rate without MGR. Sternotomy scars well healed. ABDOMEN: Soft and nontender. GENITOURINARY: Deferred. EXTREMITIES: No CC&E. NEUROLOGICAL: The patient is oriented to person, place, and time, but he does act little bit confused. He denies severe headache. He has chronic gait disturbance from his previous AVM surgery, but his says that is not worse than prior. LABORATORY DATA: Lab as above. Chest x-ray is currently pending. ASSESSMENT: 1. Febrile illness, possible sepsis. 2. Clinical picture is consistent with Tigard spotted fever or other rickettsial diseases. 3. Type 1 diabetes mellitus, poor control, on insulin pump. 4. History of coronary artery disease post CABG. 5. Peripheral vascular disease. 6. Diabetes mellitus, metabolic syndrome. PLAN: The patient will be admitted with goodwin cultures, placed on IV doxycycline, ID consult with Dr. Garza, sliding scale insulin and fluids. We will check rickettsial titers and Lyme titers. TRANSINT:[id number] Voice Confirmation ID: [id number] DOCUMENT ID: [id number] SANJUANA COLIN MD at 0736 CC: [id number] DICTATION DATE: 02/26/171649 PATIENT SVCS MGR: 02/26/17 1845 ADM IN [place] [id number] [place] [address]
[2017-03-01 08:14] VITALS: BP 142/103; BP 142/63
[2017-03-01 08:47] VITALS: BP 131/67
--- NOTE | 2017-03-01 08:48 | NUR ---
PATIENT ALERT IN BED READING NEWSPAPER. NO SIGNS OF DISTRESS NOTED. SCHEDULED MEDICATION ADMINISTERED. DENIES NEEDS. SIDE RAILS UP X2. BED IN LOW POSITION. CALL LIGHT IN REACH.
--- NOTE | 2017-03-01 11:11 | NUR ---
ALERT IN BED WATCHING TV WITH PRESENT. NO SIGNS OF DISTRESS NOTED. ACCU CHECK 301. INSULIN PER SLIDING SCALE. DENIES NEEDS. SIDE RAILS UP X2. BED IN LOW POSITION. CALL LIGHT IN REACH.
[2017-03-01 12:04] VITALS: BP 147/59
[2017-03-01 13:15] LABS: HEMATOCRIT 37.7 % (42.0-54.0); HEMOGLOBIN 12.9 g/dL (13.5-17.5); MCH 29.6 pg (26.0-34.0); MCHC 34.2 g/dL (31.0-37.0); MCV 86.5 fL (80.0-100.0); MEAN PLATELET VOLUME 9.9 fL (7.4-10.4); RBC 4.36 10x6/uL (4.20-6.10); RDW 12.6 % (11.5-14.5)
[2017-03-01 13:22] LABS: PLATELET COUNT 190 10x3/uL (130-400); WBC 5.9 10x3/uL (4.8-10.8)
[2017-03-01] MEDS ORDERED: VIBRAMYCIN 100100 MG PO (13:29)
[2017-03-01 13:47] LABS: ALBUMIN 3.1 g/dL (3.4-5.0); BILIRUBIN - DIRECT 0.09 mg/dL (0.00-0.30); BILIRUBIN - INDIRECT 0.11 mg/dL (0.00-1.00); BILIRUBIN - TOTAL 0.2 mg/dL (0.2-1.3); PROTEIN - SERUM 5.5 g/dL (6.4-8.2)
[2017-03-01 14:02] LABS: EOSINOPHILS 1 % (0-7); LYMPHOCYTES 50 % (15-50); MONOCYTES 14 % (2-11); NEUTROPHILS 30 % (40-80); PLATELET ESTIMATE NORMAL
[2017-03-01 14:03] LABS: ANISOCYTOSIS OCC; SMUDGE CELLS OCC
--- NOTE | 2017-03-01 14:46 | NUR ---
CM NOTE: PATIENT DISCHARGING HOME TODAY WITH NO NEEDS. REFUSED HOME HEALTH. DRIVING PATIENT HOME. IMM SERVED
--- NOTE | 2017-03-01 15:00 | NUR ---
D/C TEACHING PROVIDED. STATES UNDERSTANDING. QUESTIONS ANSWERED. IV TO RIGHT AC D/C WITH CATH TIP INTACT. SITE COVERED WITH GAUZE AND BANDAID.
--- NOTE | 2017-03-01 15:17 | NUR ---
PATIENT D/C HOME WITH . TRANSFERRED DOWNSTAIRS VIA WHEELCHAIR WITH STAFF
[2017-03-02 03:09] LABS: HEPATITIS C ANTIBODY <0.1 (0.0-0.9)
== END 2017-03-01 15:18 | disposition home or self-care (01) | DRG 810 ==
LOC: D.MS 14:03
PROVIDERS: ADMIT Family Medicine
DX: D70.9 Neutropenia, unspecified (principal); R50.81 Fever presenting with conditions classified elsewhere; E10.51 Type 1 diabetes mellitus with diabetic peripheral angiopathy without gangrene; Z96.41 Presence of insulin pump (external) (internal); R26.9 Unspecified abnormalities of gait and mobility; I10 Essential (primary) hypertension; E78.5 Hyperlipidemia, unspecified

== ENCOUNTER → 2018-10-18 14:33 | Outpatient (CLI) | payer MEDICARE ==
[~2018-10-18 14:33] MED LIST changes: +VIBRAMYCIN 100100 MG PO
== END | disposition home or self-care (01) ==
LOC: D.HCCARDIO 14:33
DX: I25.10 Atherosclerotic heart disease of native coronary artery without angina pectoris (principal)

== ENCOUNTER 2019-05-17 14:12 | Outpatient (CLI) | payer MEDICARE ==
[~2019-05-17] VITALS: Ht 177.8 cm; Wt 92.3 kg
--- NOTE | ~2019-05-17 | HEMODYNAMI ---
PATIENT:SARAH MARTINEZ MEDICAL RECORD: [id number] : 51 LOCATION:[facility] ADMISSION DATE: 05/17/19 Generatedon:05/17/201916:10 Patient name: SARAH MARTINEZ Patient #: [id number] SSN: [id number] : 1955 Date of study: 05/17/2019 Page: Of Hemodynamic Procedure Report Patient Data Patient Demographics Procedure consent was obtained First Name: SARAH Gender: Male Last Name: JUAN : 1955 [facility] Initial: C Age: 64 year(s) Patient #: [id number] Race: SSN: [id number] Additional ID: [id number] Contact details Address: [address] [place] [address] State: [place] City: [facility] [place] Zip code: [address] Past Medical History Allergies Allergen Reaction Date Comments Reported Morphine 11/19/2016 Admission Admission Data Admission Date: 05/17/2019 Admission Time: 14:12 Procedure Procedure Types Cath Procedure Diagnostic Procedure Peripheral Cath Diagnostic Procedure Pomologist Peripheral Procedures AFRO (Diagnostic) Peripheral vascular Intervention Stent Stent Iliac w/plasty Initial Procedure Description Procedure Date Procedure Date: 05/17/2019 Procedure Start Time: 15:14 Procedure End Time: 16:00 Procedure Staff Name Function Nicho Aguirre MD Performing Physician Yi Marie RT Monitor Soumya Rocha RT Scrub Shayla Rust RN Nurse Procedure Data Cath Procedure Fluoroscopy Diagnostic fluoroscopy Total fluoroscopy Time: 5.2 time: 5.2 min min Diagnostic fluoroscopy Total fluoroscopy dose: 712 dose: 712 mGy mGy Contrast Material Contrast Material Type Amount (ml) Isovue 300 180 Entry Location Entry Primary Successful Side Size Upsize Upsize Entry Closure Succes sful Closure Location (Fr) 1 (Fr) 2 (Fr) Remarks Device Remarks Femoral Right 5 Fr Exoseal artery Femoral Left 7 Fr 7 Fr 7 Fr Exoseal artery Short Long Short Estimated blood loss: 5 ml Diagnostic catheters Device Type Used For End Catheter Placement DIAGNOSTIC Pigtail 5Fr Multi-vessel catheter ([id number]) Angiography Procedure Complications No complications Procedure Medications Medication Administration Route Dosage 0.9% NaCl I.V. 100 ml/hr Oxygen etCO2 Nasal cannula 2 l/min Lidocaine 2% added to field 20 Heparin Flush Bag added to field 2 bags (1000units/500ml NS) Versed I.V. 2 mg Fentanyl I.V. 50 mcg Fentanyl I.V. 50 mcg Versed I.V. 2 mg Heparin Bolus I.V. 7000 units Hemodynamics Rest Heart Rate: 74 (bpm) Snapshots Pre Cath Intra NCS Post Cath Vital Signs Time Heart Resp SPO2 etCO2 NIBP (mmHg) Rhythm Pain Sedation Rate (ipm) (%) (mmHg) Status Level (bpm) 14:55:36 76 10 97 14.3 Measuring NSR 0 (11) , 10(A) No pain 14:56:17 75 11 97 41 181/79(137) NSR 0 (11) , 10(A) No pain 15:00:45 75 13 97 41 170/78(135) NSR 0 (11) , 10(A) No pain 15:05:11 74 10 95 43.7 173/77(127) NSR 0 (11) , 10(A) No pain 15:09:36 73 12 100 40.7 158/77(134) NSR 0 (11) , 10(A) No pain 15:13:54 70 11 100 27.1 169/82(147) NSR 0 (11) , 10(A) No pain 15:18:20 71 10 100 17.3 189/78(143) NSR 0 (11) , 9(A) No pain 15:22:42 72 9 100 0 171/85(133) NSR 0 (11) , 9(A) No pain 15:27:06 71 13 100 20.3 162/71(133) NSR 0 (11) , 9(A) No pain 15:31:29 71 10 100 24.1 175/80(123) NSR 0 (11) , 9(A) No pain 15:35:57 72 9 100 14.3 176/84(138) NSR 0 (11) , 9(A) No pain 15:40:23 72 13 100 12.8 188/88(146) NSR 0 (11) , 9(A) No pain 15:44:47 72 8 100 34.6 178/89(137) NSR 0 (11) , 9(A) No pain 15:49:12 73 15 100 25 173/84(125) NSR 0 (11) , 9(A) No pain 15:53:36 74 15 100 14.3 187/88(135) NSR 0 (11) , 9(A) No pain 15:58:04 76 17 100 38.4 194/96(160) NSR (Missing) 9(A) Medications Time Medication Route Dose Verified Delivered Reason Notes Effectiveness by by 15:03:50 0.9% NaCl I.V. 100 Nicho Shayla used for ml/hr Timothy Rust poultry service technician 15:03:57 Oxygen etCO2 2 Nicho Shayla used for Nasal l/min Timothy Rust procedure cannula RN 15:04:03 Lidocaine 2% added 20ml Nicho Nicho for local to vial Timothy Aguirre MD anesthetic field 15:04:07 Heparin Flush added 2 Nicho Nicho used for Bag to bags Timothy Aguirre MD procedure (1000units/500ml field NS) 15:08:50 Versed I.V. 2 mg Nicho Shayla for sedation Timothy Rust RN 15:08:55 Fentanyl I.V. 50 Nicho Shayla for sedation mcg Timothy Rust RN 15:14:02 Fentanyl I.V. 50 Nicho Shayla for sedation mcg Timothy Rust RN 15:14:23 Versed I.V. 2 mg Nicho Shayla for sedation Timothy Rust RN 15:44:23 Heparin Bolus I.V. 7000 Nicho Shayla for verif ied units Timothy Rust anticoagulation with Dr. KING Aguirre Procedure Log Time Note 14:43:26 Informed consent obtained and on chart 14:43:30 Diagnostic Cath Status : Elective 14:43:49 Procedure Status Peripheral. 14:43:51 Shayla Rust RN sent for patient. Start room use. 14:43:52 Time tracking: Regular hours (M-F 7:00 - 5:00) 14:43:56 Plan of Care:Hemodynamics will remain stable., Cardiac rhythm will remain stable., Comfort level will be maintained., Respiratory function will remain adequate., Patient/ family verbilizes understanding of procedure., Procedure tolerated without complication., Recovers from procedure without complications.. 14:47:00 Patient received from Pre/Post Procedure Room to CCL 2 Alert and oriented. Tansferred to table in Supine position. 14:47:01 Warm blankets applied, and veronica hugger turned on for patient comfort. 14:47:02 Correct patient and procedure confirmed by team. 14:47:02 ECG and BP/O2 sat monitors applied to patient. 14:53:47 Vital chart was started 15:03:50 0.9% NaCl 100 ml/hr I.V. was administered by Shayla Rust RN; used for procedure; Verbal order read back and verified. 15:03:57 Oxygen 2 l/min etCO2 Nasal cannula was administered by Shayla Rust RN; used for procedure; Verbal order read back and verified. 15:04:03 Lidocaine 2% 20ml vial added to field was administered by Nicho Aguirre MD; for local anesthetic; Verbal order read back and verified. 15:04:07 Heparin Flush Bag (1000units/500ml NS) 2 bags added to field was administered by Nicho Aguirre MD; used for procedure; Verbal order read back and verified. 15:05:21 Baseline sample Acquired. 15:05:24 Rhythm: sinus rhythm 15:05:27 Full Disclosure recording started 15:05:31 H&P Date Dictated: 05/17/2019 Within 30 days and on chart., H&P Addendum completed by physician on day of procedure. (MUST COMPLETE FOR ALL OUTPATIENTS). 15:05:33 Pre-procedure instructions explained to patient. 15:05:33 Pre-op teaching completed and patient verbalized understanding. 15:05:35 Family in patients room. 15:05:37 Patient NPO since Midnight. 15:05:38 Is the patient allergic to Iodine/contrast media? No. 15:05:39 Was the patient premedicated? Yes 15:05:41 Is patient on blood thinner?No 15:05:45 Patient diabetic? Yes. 15:05:46 If diabetic: On Metformin? No 15:05:51 Previous problem with sedation/anesthesia? No ? 15:05:53 Snore? Yes 15:05:54 Sleep apnea? No 15:05:55 Deviated septum? No 15:05:56 Opens mouth fully? Yes 15:05:57 Sticks out tongue? Yes 15:06:00 Airway obstruction? No ? 15:06:03 Dentures? No ? 15:06:10 Pre procedure: right dorsailis pedis pulse Doppler 15:06:14 Pre procedure: left dorsailis pedis pulse Doppler 15:06:20 Patient pain scale 0/10 ?. 15:06:27 IV patent on arrival in left forearm with 0.9% NaCl at [facility]. 15:06:29 Lab results completed and on chart. 15:06:36 Stress Test: no; N/A ? 15:06:40 Bilateral groins area was prepped with chlora-prep and draped in sterile fashion 15:06:43 Alarms reviewed by RSara N. 15:06:43 Sharps counted by scrub and verified by R.N. 15:06:45 Physician arrived 15:06:45 --------ALL STOP TIME OUT------ 15:06:46 Final Timeout: patient, procedure, and site verified with staff and physician. All members of the team are in agreement. 15:06:50 Bilateral groins site verified by team. 15:06:58 Fire Safety Assessment: A--An alcohol-based skin anteseptic being used preoperatively., C--Open oxygen or nitrous oxide is being used., D--An ESU, laser, or fiber-optic light is being used. 15:07:04 Physical assessment completed. ASA score P 3 - A patient with severe systemic disease as per Nicho Aguirre MD. 15:07:08 1) 90+ Normal kidney functon but urine findings or structural abnormalities or genetic trait point to kidney disease. 15:07:13 Maximum allowable contrast dose (3.7 X eGFR X 0.75)250 ml. 15:07:16 Sedation plan: IV Moderate Sedation Medication:Versed, Fentanyl 15:07:38 Zero performed for pressure channel P1 15:07:44 Zero performed for pressure channel P1 15:07:49 Zero performed for pressure channel P1 15:08:50 Versed 2 mg I.V. was administered by Shayla Rust RN; for sedation; Verbal order read back and verified. 15:08:55 Fentanyl 50 mcg I.V. was administered by Shayla Rust RN; for sedation; Verbal order read back and verified. 15:14:02 Fentanyl 50 mcg I.V. was administered by Shayla Rust RN; for sedation; Verbal order read back and verified. 15:14:23 Versed 2 mg I.V. was administered by Shayla Rust RN; for sedation; Verbal order read back and verified. 15:14:36 Procedure started. 15:14:41 Local anesthetic to right femoral artery with Lidocaine 2% by Nicho Aguirre MD.INITIAL ACCESS ONLY 15:16:50 MICROPUNCTURE 4FR Cook ([id number]) opened to sterile field. 15:20:36 Access obtained with 4Fr micropunture. 15:20:44 A 5 Fr sheath was inserted into the Right Femoral artery 15:22:31 A DIAGNOSTIC Pigtail 5Fr catheter ([id number]) was advanced over the wire and used for Multi-vessel Angiography. 15:25:00 Abdominal angiogram w/ runoff was performed. 15:35:37 Catheter removed. 15:36:18 SHEATH 7FR Brite Tip 35cm ([id number]) opened to sterile field. 15:36:20 SHEATH 7FR Newalla (SLF868) opened to sterile field. 15:36:42 Local anesthetic to left femerol artery with Lidocaine 2% by Nicho Aguirre MD.ADDITIONAL ACCESS 15:38:54 A 7 Fr Short sheath was inserted into the Left Femoral artery 15:40:46 INFLATOR Merit BasixCompak (QN5721) opened to sterile field. 15:41:09 EMERALD Guide Wire (502-588) opened to sterile field. 15:41:15 Use device set Acist 15:41:16 ACIST Syringe (13719) opened to sterile field. 15:41:17 ACIST Hand Control (18805) opened to sterile field. 15:41:18 ACIST Manifold (57189) opened to sterile field. 15:43:24 Sheath upsized to a 7 Fr Long. 15:44:23 Heparin Bolus 7000 units I.V. was administered by Shayla Rust RN; for anticoagulation; verified with Dr. Aguirre Verbal order read back and verified. 15:48:26 j wire advanced. 15:50:35 Place stent Inflation Number: 1 A GILDA 8 x 29 x 135 stent ([id number]) was prepped and advanced across the Mid Common Iliac, Left 80. The stent was deployed at 12 DAVID for 0:10 (min:sec) 0. 15:51:56 Stent catheter was removed intact over wire. 15:51:57 Wire removed. 15:52:14 EXOSEAL 5Fr (EX500) opened to sterile field. 15:52:15 EXOSEAL 7Fr (EX700) opened to sterile field. 15:52:31 Sheath upsized to a 7 Fr Short. 15:52:39 Sheath removed intact; hemostasis achieved with Exoseal to the Right Femoral artery. 15:52:45 ACT drawn and resulted at 306 seconds. (normal therapeutic range 180-240 seconds). 15:52:45 Sheath removed intact; hemostasis achieved with Exoseal to the Left Femoral artery. 15:52:51 Procedure ended.(Physican Out) 15:53:26 Fluoroscopy time 05.20 minutes. 15:53:32 Flurop Dose total: 712 15:53:32 Fluoroscopy dose: 712 mGy 15:56:09 Dose Area Product 77179 mGy/cm. 15:59:35 Contrast amount:Isovue 300 180ml. 15:59:38 Maximum allowable dose exceeded? No. 15:59:39 Sharps counted by scrub and verified by R.N. 15:59:42 Insertion/operative site no bleeding no hematoma. 15:59:45 Post-op/insertion site Right Femoral artery dressed using a 4 x 4 and Tegaderm. 15:59:48 Post-op/insertion site Left Femoral artery dressed using a 4 x 4 and Tegaderm. 15:59:49 Post Procedure Pulses reassessed and unchanged 15:59:52 Post procedure rhythm: unchanged. 15:59:55 Estimated blood loss: 5 ml 15:59:56 Post procedure instruction explained to patient.Patient verbalizes understanding. 15:59:57 Patient needs reinforcement of post procedure teaching. 16:00:22 Procedure type changed to Cath procedure, Diagnostic procedure, Peripheral Cath Diagnostic Procedure, Pomologist Peripheral Procedures, AFRO (Diagnostic), Peripheral vascular Intervention, Stent, Stent Iliac w/plasty Initial 16:00:23 Procedure and supply charges have been captured, reviewed, submitted and are correct. 16:00:27 Procedure Complication : No complications 16:00:29 Vital chart was stopped 16:00:37 AFRO Findings: PVD: DOCUMENTUM CONSULTANT performed (see procedure notes) 16:00:39 Operative report dictated upon procedure completion. 16:00:40 See physician's report for complete and final results. 16:00:46 Report given to Pre/Post Procedure Room. 16:00:50 Patient transfered to Pre/Post Procedure Room with Stretcher. 16:00:52 Procedure ended. 16:00:52 Full Disclosure recording stopped 16:01:00 ACC-PCI Only Patient was given prescriptions, or instructed by Nicho Aguirre MD to start/continue the following medications upon discharge: Plavix 16:01:01 End room use (Document Last) 16:09:04 Femstop placed over the left femerol artery at 150 mmHg. Hemostasis achieved. Intervention Summary Intervention Notes Time ActionType Lesion and Equipment Action# Pressure Duration Attributes Used 15:50:35 Place stent Mid Common GILDA 8 x 1 12 00:10 Iliac, Left 29 x 135 stent ([id number]) Device Usage Item Name Manufacture Quantity Catalog Hospital Part Current Minimal Lot# / Number Charge Number Stock Stock Serial# Code MICROPUNCTURE Cook Medical 1 [id number] [id number] 176307 5 4FR Cook (S31693) DIAGNOSTIC Cardinal 1 [id number] 876519 271647 592934 5 Pigtail 5Fr Health catheter (603685H) SHEATH 7FR Cardinal 1 [id number] 376897 518702 103871 1 Brite Tip Health 35cm (647796V) SHEATH 7FR Terumo 1 [id number] 957207 103840 588434 5 Newalla (ELW392) INFLATOR Merit 1 SQ4754 395852 004672 632337 15 [facility] Medical BasixCompak (WC4760) EMERALD Guide Cardinal 1 502-455 580746 447470 375911 5 Wire Health (502-455) ACIST Syringe Acist 1 31295 843859 170206 380415 20 (64285) Medical Systems Inc ACIST Hand Acist 1 96370 774906 395323 089034 5 Control Medical (61154) Systems Inc ACIST Acist 1 95036 681145 491036 676929 5 Manifold Medical (04740) Systems Inc GIDLA 8 x Cardinal 1 [id number] 303180 082805 758914 5 [id number] 29 x 135 Health stent ([id number]) EXOSEAL 5Fr Cardinal 1 EX500 045091 102519 547867 10 (EX500) Health EXOSEAL 7Fr Cardinal 1 EX700 269125 188778 395443 5 (EX700) Health Signature Audit Burton Stage Time Signature Unsigned Intra-Procedure 05/17/2019 Yi Marie 4:09:31 PM RT(R) Intra-Procedure 05/17/2019 Shayla Rust 4:10:00 PM RN Intra-Procedure 05/17/2019 Nicho Aguirre MD 4:10:56 PM Signatures Performing Physician : Signature : Nicho Aguirre MD Date : Time : Monitor : Yi Marie RT Signature : Date : Time : Nurse : Shayla Rust RN Signature : Date : Time : [address] [address]
[2019-05-17 12:53] VITALS: BP 105/83; Ht 177.8 cm; Wt 92.3 kg
[2019-05-17 13:04] LABS: BASOPHILS 0.1 % (0-2); EOSINOPHILS 1.8 % (0-7); HEMATOCRIT 39.6 % (42.0-54.0); IMMATURE GRANULOCYTES 0.3 % (0-5); LYMPHOCYTES 19.2 % (15-50); MCH 29.3 pg (26.0-34.0); MCHC 32.8 g/dL (31.0-37.0); MCV 89.4 fL (80.0-100.0); MEAN PLATELET VOLUME 9.8 fL (7.4-10.4); MONOCYTES 10.4 % (2-11); NEUTROPHILS 68.2 % (40-80); RBC 4.43 10x6/uL (4.20-6.10); RDW 12.9 % (11.5-14.5); WBC 8.9 10x3/uL (4.8-10.8)
[2019-05-17 13:09] LABS: CALC OSMOLALITY 282 mosm/kg (275-300); CALCIUM 8.5 mg/dL (8.5-10.1); CARBON DIOXIDE 32.7 mmol/L (21.0-32.0); CHLORIDE - SERUM 104 mmol/L (98-107); CREATININE - SERUM 0.8 mg/dL (0.6-1.3); POTASSIUM - SERUM 4.4 mmol/L (3.5-5.1); SODIUM 141 mmol/L (136-145); UREA NITROGEN 20 mg/dL (7-18); eGFR NON AFRICAN AMERICAN > 90 mL/min (90-120)
[2019-05-17 13:12] LABS: GLUCOSE 84 mg/dL (74-106)
[2019-05-17 13:13] LABS: PLATELET COUNT 355 10x3/uL (130-400)
[~2019-05-17 14:12] MED LIST changes: +ALEVE220 MG PO; +GABAPENTIN100 MG PO
--- NOTE | 2019-05-17 16:20 | NUR ---
PATIENT ARRIVED TO ROOM 3, PLACED ON CM. VSS. LEFT GROIN 7F EXOSEAL WITH FEMOSTOP IN PLACE, NO S/S OF BLEEDING OR HEMATOMA. PEDAL PULSES DOPPLED. RIGHT GROIN 5F EXOSEAL WITH DRESSING IN PLACE, NO S/S OF BLEEDING OR HEMATOMA. PHYSICIAN PRESENT AT BEDSIDE TO UPDATE PATIENT AND SPOUSE. WILL CONTINUE TO MONITOR.
--- NOTE | 2019-05-17 16:35 | NUR ---
PATIENT AWAKE, EATING ROBINSON CRACKERS AND DRINKING ORANGE JUICE. PRESENT AT BEDSIDE. VSS ON ROOM AIR. BILATERAL GROINS SHOW NO S/S OF BLEEDING OR HEMATOMA. NO C/O PAIN, NUMBNESS, OR TINGLING. NO N/V.
--- NOTE | 2019-05-17 17:05 | NUR ---
PATIENT RESTING, VSS ON 1L NC. BILATERAL GROIN SITES SHOW NO S/S OF BLEEDING OR HEMATOMA. PATIENT TOLERATING PO FLUIDS AND FOOD, NO N/V.
--- NOTE | 2019-05-17 17:35 | NUR ---
PATIENT C/O PAIN IN LEFT LEG RELATED TO FEMOSTOP. 20 CC OF AIR REMOVED FROM DEVICE PER PROTOCOL, NO S/S OF BLEEDING OR HEMATOMA. VSS ON 1L NC. BILATERAL GROIN SITES SHOW NO S/S OF BLEEDING OR HEMATOMA. NO N/V.
--- NOTE | 2019-05-17 17:45 | NUR ---
STRAIGHT CATH USED FOR PATIENT, 750ML OF CLEAR YELLOW URINE VOIDED.
--- NOTE | 2019-05-17 18:03 | NUR ---
25 CC OF AIR REMOVED FROM FEMOSTOP PER PROTOCOL, NO S/S OF BLEEDING OR HEMATOMA AT LEFT GROIN SITE. RIGHT GROIN DRESSING IS CDI, NO S/S OF BLEEDING OR HEMATOMA. PAIN PILL GIVEN PRESCRIBED. VSS ON ROOM AIR. NO N/V.
--- NOTE | 2019-05-17 18:15 | NUR ---
FEMOSTOP REMOVED, DRESSING APPLIED AT LEFT GROIN SITE, NO S/S OF BLEEDING OR HEMATOMA.
--- NOTE | 2019-05-17 18:35 | NUR ---
PATIENT INTERMITTENTLY RESTING, VSS ON ROOM AIR. BILATERAL GROIN DRESSINGS ARE CDI, NO S/S OF BLEEDING OR HEMATOMA. NO C/O PAIN, NUMBNESS, OR TINGLING. TOLERATING PO FLUIDS AND FOOD, NO N/V. PATIENT STATES THAT PAIN IS "MUCH BETTER", RATES PAIN AT A 3 ON A SCALE OF 1-10.
--- NOTE | 2019-05-17 19:05 | NUR ---
HEAD OF BED ELEVATED TO 45 DEGREES. BILATERAL GROINS SHOW NO S/S OF BLEEDING OR HEMATOMA. NO C/O PAIN, NUMBNESS, OR TINGLING. VSS ON ROOM AIR. NO N/V.
--- NOTE | 2019-05-17 19:35 | NUR ---
IV REMOVED. WRITTEN AND VERBAL DISCHARGE INSTRUCTIONS GIVEN TO PATIENT AND SPOUSE, BOTH VOICE UNDERSTANDING. BILATERAL GROIN DRESSINGS ARE CDI, NO S/S OF BLEEDING OR HEMATOMA. PATIENT DISCONNECTED FROM MONITORS TO GET DRESSED.
--- NOTE | 2019-05-17 19:50 | NUR ---
PATIENT TRANSPORTED VIA WHEELCHAIR TO CAR WITH SPOUSE DRIVING, ALL BELONGINGS WITH PATIENT.
== END 2019-05-17 19:50 ==
LOC: D.CATH 14:12
PROVIDERS: ATTEND Internal Medicine Cardiovascular Disease
DX: I70.212 Atherosclerosis of native arteries of extremities with intermittent claudication, left leg (principal)

== ENCOUNTER 2020-02-05 20:06 | Inpatient (IN) | payer MEDICARE ==
[~2020-02-05] VITALS: Ht 177.8 cm; Wt 86.2 kg
[2020-02-05 20:48] LABS: HEMATOCRIT 36.3 % (42.0-54.0); MCH 27.8 pg (26.0-34.0); MCHC 33.1 g/dL (31.0-37.0); MCV 84.2 fL (80.0-100.0); MEAN PLATELET VOLUME 9.5 fL (7.4-10.4); PLATELET COUNT 552 10x3/uL (130-400); RBC 4.31 10x6/uL (4.20-6.10); RDW 12.8 % (11.5-14.5); WBC 21.1 10x3/uL (4.8-10.8)
[2020-02-05 20:59] LABS: INR 1.08 (0.85-1.17); PROTIME 13.9 SECONDS (11.6-15.0)
[2020-02-05 21:00] LABS: APTT 38.5 SECONDS (22.8-39.4)
[2020-02-05 21:03] LABS: D-DIMER-QUANTITATIVE 3.98 ug/mLFEU (0.20-0.54)
[2020-02-05 21:05] LABS: LYMPHOCYTES 5 % (15-50); MONOCYTES 7 % (2-11); NEUTROPHILS 84 % (40-80); PLATELET ESTIMATE INCREASED
[2020-02-05 21:19] LABS: ALBUMIN 2.4 g/dL (3.4-5.0); ALKALINE PHOSPHATASE 174 U/L (30-120); ALT (SGPT) 29 U/L (10-68); CARBON DIOXIDE 28.7 mmol/L (21.0-32.0); CHLORIDE - SERUM 95 mmol/L (98-107); CREATINE KINASE 52 UL (21-232); CREATININE - SERUM 1.4 mg/dL (0.6-1.3); MAGNESIUM - SERUM 1.7 mg/dL (1.8-2.4); PRO BNP 245 pg/mL (0-125); PROTEIN - SERUM 6.8 g/dL (6.4-8.2); SODIUM 131 mmol/L (136-145); THYROID STIMULATING HORMONE 1.97 uIU/mL (0.36-3.74); UREA NITROGEN 25 mg/dL (7-18); eGFR NON AFRICAN AMERICAN 54 mL/min (90-120)
[2020-02-05 21:20] LABS: CALC OSMOLALITY 285 mosm/kg (275-300); LIPASE 30 U/L (73-393); TROPONIN-I < 0.017 ng/mL (0.000-0.060)
[2020-02-05 21:25] LABS: GLUCOSE 443 mg/dL (74-106)
[2020-02-05 21:34] LABS: C-REACTIVE PROTEIN 37.8 mg/dL (0.0-0.9)
--- NOTE | 2020-02-05 23:00 | NUR ---
NS BOLUS COMPLETED AT THIS TIME
--- NOTE | 2020-02-06 00:50 | NUR ---
HALEY COMPLETED AT THIS TIME
[2020-02-06 05:11] VITALS: BP 138/57
--- NOTE | 2020-02-06 07:00 | NUR ---
RECEIVED REPORT.ASSUMED CARE OF PATIEN. CALL LIGHT WITHIN REACH. PATIENT RESTING IN BED WITH EYES OPEN. SLOW SPEECH NOTED DUE TO TBI. WHITE BOARD UPDATED. BEDSIDE SHIFT REPORT COMPLETE. NO DISTRESS.
--- NOTE | 2020-02-06 07:36 | NUR ---
FSBS 300. DR. COLIN HERE FOR ROUNDS. NEW ORDERS FOR 1 LITER BOLUS NOW AND THEN NS AT 125.
--- NOTE | 2020-02-06 07:56 | NUR ---
VERBAL ORDER RECIEVED TO DO Q2 HOUR FSBS UNTIL NOON.
[2020-02-06 08:00] VITALS: BP 138/62
--- NOTE | 2020-02-06 08:01 | NUR ---
10 UNITS HUMULIN ADMINISTERED FOR FSBS 300, VERBAL ORDER PER .
[2020-02-06 08:06] LABS: BASOPHILS 0.1 % (0-2); EOSINOPHILS 0.1 % (0-7); HEMATOCRIT 31.8 % (42.0-54.0); HEMOGLOBIN 10.5 g/dL (13.5-17.5); IMMATURE GRANULOCYTES 0.4 % (0-5); LYMPHOCYTES 5.9 % (15-50); MCH 27.7 pg (26.0-34.0); MCV 83.9 fL (80.0-100.0); MEAN PLATELET VOLUME 8.7 fL (7.4-10.4); MONOCYTES 8.8 % (2-11); NEUTROPHILS 84.7 % (40-80); RBC 3.79 10x6/uL (4.20-6.10); RDW 12.9 % (11.5-14.5); WBC 16.8 10x3/uL (4.8-10.8)
[2020-02-06 08:07] LABS: PLATELET COUNT 425 10x3/uL (130-400)
[2020-02-06 08:28] LABS: CALCIUM 8.4 mg/dL (8.5-10.1); CARBON DIOXIDE 29.2 mmol/L (21.0-32.0); CHLORIDE - SERUM 102 mmol/L (98-107); SODIUM 136 mmol/L (136-145); UREA NITROGEN 22 mg/dL (7-18); eGFR NON AFRICAN AMERICAN 90 mL/min (90-120)
[2020-02-06 08:29] LABS: CALC OSMOLALITY 285 mosm/kg (275-300); CREATININE - SERUM 0.9 mg/dL (0.6-1.3); GLUCOSE 293 mg/dL (74-106)
--- NOTE | 2020-02-06 09:36 | NUR ---
FSBS REMAINS ELEVATED AT 301. 10 UNITS HUMULIN ADMINISTERED PER VERBAL ORDERS FROM DR. COLIN. PATIENT COMPLETED BOLUS FLUIDS AND NOW TOLERATING NS @ 125MNL/HR WELL. NO DISTRESS.
[2020-02-06 11:00] VITALS: BP 133/58
[2020-02-06 11:52] LABS: BILIRUBIN NEGATIVE (NEGATIVE); EPITHELIAL CELLS OCC /hpf (0-5); GLUCOSE 1000 mg/dL (NEGATIVE); KETONE LARGE mg/dL (NEGATIVE); NITRITE NEGATIVE (NEGATIVE); RED CELLS - URINE OCC /hpf (0-5); WHITE CELLS - URINE OCC /hpf (NEGATIVE)
--- NOTE | 2020-02-06 12:14 | NUR ---
FSBS 246. 8 UNITS HUMULIN ADMINISTERED PER SLIDING SCALE.
[2020-02-06 13:15] VITALS: Ht 177.8 cm; Wt 86.2 kg
[2020-02-06 15:00] VITALS: BP 118/53
--- NOTE | 2020-02-06 17:10 | NUR ---
FSBS 386. 16 UNITS HUMULIN INSULIN ADMINISTERED PER SLIDING SCALE. NO DISTRESS.
--- NOTE | 2020-02-06 17:11 | NUR ---
SPOKE WITH DR. COLIN AND RECEIVED ORDERS TO DECREASE FLUIDS TO 100ML/HR AT THIS TIME.
--- NOTE | 2020-02-06 19:00 | NUR ---
REPORT RECEIVED, WILL CONTINUE POC. PATIENT IS AAOX4, SITTING UP IN BED. NO S/S OF DISTRESS OBSERVED, RR EVEN AND UNLABORED ON ROOM AIR. PATIENT DENIES NEEDS AT THIS TIME. CL IN REACH, BED LOCKED AND LOWERED. WILL CTM.
[2020-02-06 20:00] VITALS: BP 123/51
[2020-02-06 21:34] VITALS: BP 123/51
[2020-02-07] VITALS: BP 137/62
[2020-02-07 04:00] VITALS: BP 145/61
[2020-02-07 07:00] LABS: BASOPHILS 0.1 % (0-2); EOSINOPHILS 0.5 % (0-7); HEMATOCRIT 32.9 % (42.0-54.0); HEMOGLOBIN 10.5 g/dL (13.5-17.5); IMMATURE GRANULOCYTES 0.3 % (0-5); MCH 27.1 pg (26.0-34.0); MCHC 31.9 g/dL (31.0-37.0); MCV 84.8 fL (80.0-100.0); MEAN PLATELET VOLUME 9.4 fL (7.4-10.4); MONOCYTES 8.8 % (2-11); NEUTROPHILS 82.3 % (40-80); RBC 3.88 10x6/uL (4.20-6.10); RDW 13.3 % (11.5-14.5); WBC 12.6 10x3/uL (4.8-10.8)
[2020-02-07 07:08] LABS: PLATELET COUNT 551 10x3/uL (130-400)
--- NOTE | 2020-02-07 07:11 | HP ---
PATIENT: SARAH MARTINEZ MEDICAL RECORD: [id number] ACCOUNT: [id number] LOCATION:[address] : 51 ADMISSION DATE: 02/05/20 PCP: No PCP HISTORY AND PHYSICAL EXAMINATION REASON FOR ADMISSION: Cough, fever and uncontrolled diabetes. HISTORY OF PRESENT ILLNESS: The patient is a 64-year-old male with history of coronary artery disease, cerebrovascular disease, type 1 diabetes mellitus since 1970, on insulin pump. He developed cough and fever five days prior to admission. His was symptomatic as well, she has had a temperature developed to 101 degrees Fahrenheit. Came to the clinic for a COVID that was negative reported yesterday and his is negative as well. He says he just could not get his blood sugars down, they were bouncing all over the place but as high as 450. He normally boluses himself and is followed by retail leasing agent at [facility] His most recent visit there resulted in a change in his basal rates to 1.25 units at 1:30, 1.25 at 4:30, 1.25 at 6:00 a.m., 3:00 p.m., 8:00 p.m. with bolus settings based on carbohydrate ratio up to 1 to 5.2. He said his cough has been moderately productive, although his says it has not. He has had some pleuritic pain in his right posterior chest wall as well. Denies hemoptysis. PAST MEDICAL HISTORY: CAD, skin cancer on his nose previously, cerebrovascular disease with AVMs and bleed remotely resulting in neurologic deficit and gait disturbance, type 1 diabetes mellitus, GERD, hypertension, hyperlipidemia, peripheral vascular disease with multiple surgeries on his feet for amputations. SURGICAL HISTORY: CABG 5 years ago, subdural hematoma of joan hole 2007, femur surgery times 2. 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 Roel Keating. He has had ORIF of his right hand for finger surgery. He had craniotomy surgery by Dr. Fox concerning AVMs. SOCIAL HISTORY: Former smoker, 4 packs per day for 20 years, none since 1992. Never used smokeless tobacco. Drinks maybe monthly or less 1 or 2 drinks on vacation. FAMILY HISTORY: Father had cancer. Mother had colon cancer. No one in the family has diabetes. CURRENT MEDICATIONS: Hydrocodone 10/325 one every 6 hours for pain, Humalog insulin U-100 via insulin pump - total daily dose is 75 units, MiraLax 1 packet daily, Neurontin 100 mg b.i.d., Advil 2 tablets p.r.n., Prinivil 2.5 mg daily, Plavix 75 mg daily, Ecotrin 81 mg daily, Lexapro 20 mg daily, Mevacor 40 mg with evening meal. ALLERGIES: MORPHINE. REVIEW OF SYSTEMS: GENERAL: Fatigue, fever for the last 5 days as mentioned. Poor appetite. HEENT: No recent visual change, sinus congestion, sore throat, or hearing difficulty. RESPIRATORY: He has had cough intermittently, this has mild production, but no hemoptysis. He has had pleuritic type chest pain when he coughs. He said he has not been short of breath and has retained a sense of taste and smell. HISTORY AND PHYSICAL [id number] SARAH MARTINEZ CARDIAC: No palpitations or claudication. GASTROINTESTINAL: No nausea, vomiting, change in stools or blood per rectum. GENITOURINARY: No dysuria. Has nocturia once nightly. ENDOCRINE: Denies polyuria, polydipsia, heat or cold intolerance, though blood sugars have been in excess of 400. INTEGUMENT: No new rash or itching. PSYCHIATRIC: Denies depressed mood. NEUROLOGIC: Chronic numbness in both of his feet. Chronic ataxic gait and partial expressive aphasia. PHYSICAL EXAMINATION: GENERAL: The patient is alert and oriented at this time, in no acute distress. VITAL SIGNS: Temperature 98.2, heart rate 100, respirations were 19, blood pressure 144/47. O2 sat of 94% on a nonrebreather, on room air is 94% as well. HEENT: Normocephalic. Eyes are clear, with some disconjugate gaze on the right. Oropharynx, dry mucous membranes. NECK: Supple, without bruits or masses. CHEST: He has fine crackles in the right base. No rash noted. He is not tachypneic or retracting. HEART: Regular rate without gallop. ABDOMEN: Soft, nontender with insulin Infusaport in the right lower quadrant. GENITOURINARY: Unremarkable. EXTREMITIES: No CC&E. He has a small healing ulcer on the plantar heel of the right foot. He has a forefoot amputation, well healed. No gross edema. NEUROLOGICAL: Oriented to person, place, and time. Cranial nerves intact. Gait is not tested, but historically ataxic. LABORATORY DATA: His lactic acid is 1.8. His glucose is 449 at 10:00 p.m. Flu swabs were negative. Recent COVID test negative in our office. White count 21,000 with left shift. H&H is 12.8 and 36.3 respectively, platelet count is 552,000. Alkaline phosphatase is 174. Troponin is less than 0.017. ProBNP is 245. C-reactive protein is 37.8. Lipase is 30, ketones are small. UA is pending. DIAGNOSTIC STUDIES: Chest x-ray shows some atelectasis in the right base suggestive of pneumonia. ASSESSMENT: 1. Right lower lobe community-acquired pneumonia with leukocytosis. 2. Insulin dependent diabetes mellitus with diabetic ketoacidosis. 3. Coronary artery disease, clinically stable. 4. Pleuritic chest pain. 5. Diabetic neuropathy with peripheral vascular disease. 6. Remote nicotine use, he discontinued in 1992. 7. Anxiety. 8. Depression. 9. Hypertension. 10. Hyperlipidemia. PLAN: The patient has been admitted to the floor. He is currently on no IV fluids or sliding scale insulin. His insulin pump is with his . He is getting a liter of saline wide open currently, blood sugar now checks at 330. We will start sliding scale insulin. His is to bring his pump to resume that. Monitor his blood sugars closely over the next 4-5 hours and if no improvement, move to the ICU. He has been placed on Rocephin and Zithromax in HISTORY AND PHYSICAL [id number] SARAH MARTINEZ the ED. Blood cultures have been obtained. We will obtain pulmonary consult. Dr. Aguirre was consulted from Cardiac because of chest pain which is most likely noncardiac. He is checking an echo. Discussed results and plan therapy with he and his and they agreed. Dr. Ayon will consult as well. TRANSINT:[id number] Voice Confirmation ID: [id number] DOCUMENT ID: [id number] SANJUANA COLIN MD at 0711 CC: [id number] DICTATION DATE: 02/06/20823 AUDIT MGR: 02/06/20 1013 ADM IN [facility] [address] [facility] [place] [address]
[2020-02-07 07:15] LABS: CALC OSMOLALITY 284 mosm/kg (275-300); CALCIUM 8.3 mg/dL (8.5-10.1); CARBON DIOXIDE 25.4 mmol/L (21.0-32.0); CHLORIDE - SERUM 103 mmol/L (98-107); CREATININE - SERUM 0.8 mg/dL (0.6-1.3); GLUCOSE 289 mg/dL (74-106); POTASSIUM - SERUM 3.8 mmol/L (3.5-5.1); SODIUM 137 mmol/L (136-145); UREA NITROGEN 12 mg/dL (7-18); eGFR NON AFRICAN AMERICAN > 90 mL/min (90-120)
[2020-02-07 08:00] VITALS: BP 145/66
[2020-02-07 11:00] VITALS: BP 156/74
[2020-02-07 15:00] VITALS: BP 153/69
--- NOTE | 2020-02-07 19:30 | NUR ---
PT IS RESTING IN BED WATCHING TV. NO DISTRESS NOTED. HE IS ALERT AND ORIENTED. HE DENIES PAIN OR NEEDS. BED LOW AND CALL LIGHT WITHIN REACH.
[2020-02-07 20:00] VITALS: BP 159/68
[2020-02-08 04:00] VITALS: BP 178/86
[2020-02-08 08:01] VITALS: BP 163/70
--- NOTE | 2020-02-08 11:13 | NUR ---
Nutrition Follow-up: Good appetite. Ate ~75% of breakfast this AM. Last BM 02/04 but states this is normal for him. Diet: Diabetic Wt: 190# (02/05) Labs reviewed Meds noted: Protonix, Humulin, electrolyte protocol -Encourage PO intake and honor food preferences within diet restrictions. -Monitor wt. -RD following.
[2020-02-08 12:13] VITALS: BP 114/78; BP 142/61
[2020-02-08 15:13] VITALS: BP 145/65
[2020-02-08 20:00] VITALS: BP 155/68
[2020-02-09 04:00] VITALS: BP 158/76
[2020-02-09 05:58] LABS: BASOPHILS 0.1 % (0-2); HEMATOCRIT 29.6 % (42.0-54.0); HEMOGLOBIN 9.5 g/dL (13.5-17.5); IMMATURE GRANULOCYTES 0.4 % (0-5); LYMPHOCYTES 8.6 % (15-50); MCH 27.2 pg (26.0-34.0); MCHC 32.1 g/dL (31.0-37.0); MCV 84.8 fL (80.0-100.0); MONOCYTES 9.5 % (2-11); NEUTROPHILS 79.4 % (40-80); PLATELET COUNT 537 10x3/uL (130-400); RBC 3.49 10x6/uL (4.20-6.10); RDW 13.3 % (11.5-14.5)
[2020-02-09 06:52] LABS: WBC 9.4 10x3/uL (4.8-10.8)
[2020-02-09 09:11] VITALS: BP 107/71
[2020-02-09 12:04] VITALS: BP 169/75
[2020-02-09] MEDS ORDERED: MUCINEX600 MG PO (13:40)
[2020-02-09] MEDS ORDERED: AUGMENTIN 875-11 TAB PO (13:41)
--- NOTE | 2020-02-09 16:00 | NUR ---
SALINE LOCK REMOVED, DISCHARGE INSTRUCTIONS WITH PATIENT AND . TO VEHICLE VIA WHEELCHAIR FOR DISCHARGE HOME.
== END 2020-02-09 16:06 | disposition home or self-care (01) | DRG 637 ==
LOC: D.ER 20:06 → D.M2 21:36
PROVIDERS: Family Medicine; Internal Medicine Pulmonary Disease; ADMIT Family Medicine; ATTEND Family Medicine
DX: E10.10 Type 1 diabetes mellitus with ketoacidosis without coma (principal); J18.9 Pneumonia, unspecified organism; J98.11 Atelectasis; Z79.4 Long term (current) use of insulin; I25.10 Atherosclerotic heart disease of native coronary artery without angina pectoris; E10.40 Type 1 diabetes mellitus with diabetic neuropathy, unspecified; E78.5 Hyperlipidemia, unspecified; I10 Essential (primary) hypertension; F41.8 Other specified anxiety disorders; K21.9 Gastro-esophageal reflux disease without esophagitis; D64.9 Anemia, unspecified; E83.42 Hypomagnesemia; E11.621 Type 2 diabetes mellitus with foot ulcer; L97.529 Non-pressure chronic ulcer of other part of left foot with unspecified severity; Z86.73 Personal history of transient ischemic attack (TIA), and cerebral infarction without residual deficits; Z87.891 Personal history of nicotine dependence